=== PATIENT | male | born 1940 | race Caucasian/White ===

== ENCOUNTER 2019-05-08 14:29 | Observation (INO) ==
--- OUTSIDE RECORDS SUMMARY | 2019-05-08 14:31 | External Medical Summary | Continuity of Care Document ---
:1940 Author Name Lukas Saab Address Unavailable Unavailable , Care Team Providers Name Role Phone Iain Acevedo M.D.. Unavailable [email or web address] Iain ACEVEDO M.D. Unavailable Unavailable Unavailable Unavailable Unavailable Problems Allergic rhinitis (477.9) (J30.9) Vitiligo (709.01) (L80) Allergies and Adverse Reactions No Known Drug Allergies (Allergy) Medications Triamcinolone Acetonide 0.1 % External Cream Start: 09-Jan-2012 Refills: 0 Ipratropium Java 0.02 % Inhalation Solution Start: 09-Jan-2012 Refills: 0 Betamethasone Valerate 0.1 % External Cr eam; APPLY SPARINGLY TO AFFECTED AREA(S) TWICE DAILY Katiana Acevedo Start: 09-Jan-2012 Quantity: 60 Refills: 5 Procedures Procedures not documented Immunizations Immunizations not documented Social History - Smoking Status Never smoker Plan of Treatment Planned Observations Planned Goals not documented Results No Known Results Results not documented
[2019-05-08] MEDS ORDERED: SODIUM CHLORIDE 0.9% 1000ML 1,000 ML IV SCH (14:45)
[2019-05-08] MEDS ORDERED: OPTIRAY 320 125ml IV PRN (14:50)
--- NOTE | 2019-05-08 14:53 | CT Scan Report ---
CT OF THE HEAD WITHOUT CONTRAST CLINICAL HISTORY: Stroke Alert. COMPARISON STUDY: No previous studies for comparison. CT DOSE: 614.27 mGy.cm TECHNIQUE: Helical axial images of the head were obtained without IV contrast. Automated exposure con trol was utilized for the study. A dose lowering technique was utilized adhering to the principles o f ALARA. FINDINGS: No acute intracranial hemorrhage, midline shift or mass effect is present. The ventricular system is unremarkable with the exception of a cavum vellum interpositum. The basilar cisterns are pa tent. No extra-axial collections are present. No significant calvarial abnormalities are present. Vis ualized portions of the sinuses and mastoid air cells are clear. IMPRESSION: No acute hemorrhage or mass effect. Electronically signed by: Soto Camilo M.D. 05/08/2019 2:52 PM
[2019-05-08] MEDS ORDERED: THIAMINE HCL 200 MG in SODIUM CHLORIDE 0.9% 50 ML IV STA (14:55)
--- NOTE | 2019-05-08 15:00 | CT Scan Report ---
CT ANGIOGRAM OF THE BRAIN CLINICAL HISTORY: Change in mental status. Stroke like symptoms. COMPARISON STUDY: Unenhanced CT of the brain dated 05/08/2019. TECHNIQUE: Following the IV administration of 117 cc of Optiray 320, CT angiogram of the brain was pe rformed from the skull base to the vertex. Images are reviewed in the axial, sagittal, and coronal pl anes. 3-D MIPS images are created and assessed. IV contrast was administered without complication. A dose lowering technique was utilized adhering to the principles of ALARA. CT DOSE: 613.36 mGy.cm FINDINGS: Brain parenchyma: There is mild age-related involutional change with minimal microangiopathic disease . There is no hemorrhage, mass effect, or evidence of acute territorial ischemia by CT criteria. Ther e is no evidence of enhancing mass lesion on the angiogram phase images. No extra-axial fluid collect ion is seen. Martin-white matter differentiation is preserved. Ventricles, sulci, and cisterns: Normal in configuration. CT angiogram of the brain: There is atherosclerotic calcification of the cavernous carotid arteries. There is origin of the left posterior cerebral artery. A posterior communicating artery is seen on the right. The internal carotid arteries are widely patent, as are the anterior and middle cerebr al arteries. The vertebrobasilar system and posterior cerebral arteries are widely patent. The verteb ral arteries are codominant. 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 No additional aneurysms identified. There is no h igh-grade stenosis or focal vessel cutoff identified throughout the intracranial circulation. Dural sinuses: Clear as visualized. Orbits: The bony orbits are intact. The orbital contents are normal as visualized. Sinuses and mastoids: There is mild mucosal thickening and fluid within a left posterior ethmoid sinu s. Trace mucosal thickening seen in the maxillary antra. The remaining the visualized paranasal sinus es are clear. The mastoid air cells are well pneumatized. Calvarium: Unremarkable. IMPRESSION: 1. There is no hemorrhage, mass effect, or evidence of acute territorial ischemia by CT criteria noti ng angiographic phase technique. 2. 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 3. Otherwise unremarkable CT angiogram of the brain. Electronically signed by: Nam Gonsales M.D. 05/08/2019 2:59 PM
--- NOTE | 2019-05-08 15:01 | CT Scan Report ---
CT ANGIOGRAPHY OF THE NECK WITH CONTRAST CLINICAL HISTORY: Weakness. Stroke symptoms. COMPARISON STUDY: No previous studies for comparison. Technique: CT angiography of the carotid and vertebral arteries was obtained using [email or web address] 320 IV and 3D reconstruction on an independent workstation. NASCET criteria was utilized. Automated exposure c ontrol was utilized for the study. A dose lowering technique was utilized adhering to the principles of ALARA. Findings: Lung apices are clear. There is no cervical lymphadenopathy. No cervical spine fracture is noted. Multilevel degenerative changes within the cervical spine are noted. There is no significant s tenosis within the bilateral common carotid, cervical internal carotid or vertebral arteries. There i s mild plaque within the bilateral carotid bifurcations without stenosis. There is no dissection with in the major vessels of the neck. The CTA of the head will be reported separately. IMPRESSION: Mild atherosclerotic plaque with no stenosis or dissection within the neck. Electronically signed by: Soto Camilo M.D. 05/08/2019 3:00 PM
[2019-05-08 15:11] LABS: Basophils # (auto) 0.04 K/uL (0-0.2); Basophils % (auto) 0.6 %; Eosinophils # (auto) 0.11 K/uL (0-0.5); Eosinophils % (auto) 1.6 %; Hematocrit (blood only) 38.2 % (42-52); Hemoglobin 13.1 g/dL (14.0-18.0); Immature Granulocytes # (auto) 0.07 K/uL (0.00-0.02); Lymphocytes # (auto) 1.66 K/uL (1.2-3.4); Lymphocytes % (auto) 24.8 %; Mean Corpuscular Hemoglobin 30.7 pg (25-34); Mean Corpuscular Hgb Conc 34.3 g/dL (32-36); Mean Corpuscular Volume 89.5 fL (80-100); Mean Platelet Volume 8.4 fL (7.4-10.4); Monocytes # (auto) 0.61 K/uL (0.11-0.59); Monocytes % (auto) 9.1 %; Neutrophils # (auto) 4.21 K/uL (1.4-6.5); Neutrophils % (auto) 62.9 %; Platelet Count 180 K/uL (130-400); RDW Coefficient of Variation 13.4 % (11.5-14.5); RDW Standard Deviation 43.7 fL (36.4-46.3); Red Blood Count 4.27 M/uL (4.7-6.1)
[2019-05-08] MEDS ORDERED: METOPROLOL TARTRATE 1 MG/ML VIAL IV STA (15:21)
[2019-05-08 15:28] LABS: Alanine Aminotransferase 20 U/L (12-78); Albumin Level 3.5 gm/dl (3.4-5.0); Aspartate Aminotransferase 17 U/L (15-37); BUN Creatinine Ratio 15.6 (10-20); Blood Urea Nitrogen 13 mg/dl (7-18); Calcium 7.9 mg/dl (8.5-10.1); Carbon Dioxide 22 mmol/L (21-32); Chloride 101 mmol/L (98-107); Creatinine Clr Calc Pharmacy 69.9 ml/min; Est GFR (African American) 98.6; Est GFR (Non-African American) 85.1; Glucose 113 mg/dl (70-99); Magnesium 1.9 mg/dl (1.8-2.4); Potassium 3.5 mmol/L (3.5-5.1); Sodium 134 mmol/L (136-145)
[2019-05-08 15:33] LABS: Albumin Globulin Ratio 1.3 (0.9-2); Alkaline Phosphatase 64 U/L (45-117); Bilirubin,Total 0.3 mg/dl (0.2-1); Globulin 2.8 gm/dl (2.5-4.0); Total Protein 6.3 gm/dl (6.4-8.2); Troponin I < 0.015 ng/ml (0-0.045)
--- NOTE | 2019-05-08 15:33 | Emergency Department Note ---
Entered by Shruthi Gaona acting as a scribe for History of Present Illness General Chief complaint: Neuro Symptoms/Deficit Stated complaint: MEMORY LOSS OF TODAYS,LIGHT HEADED,DISORIENTED Time Seen by Provider: 05/08/19 14:35 Source: patient and family () Limitations: no limitations History of Present Illness Onset (ago): hour(s) 2 (over two) Location: head Severity: similar to prior episodes Pain Consistency: + other (persistent ) Current Pain Intensity: 0 Quality: + other (neurological symptoms, disorientation) Associated symptoms: + confusion; no chest pain and no shortness of breath The patient is a 78 year old male who presents to the Emergency Room with complaints of persistent neurological symptoms that his noticed at 12:30 this afternoon, over two hours ago. The patient's , at bedside, reports that she and the patient had intercourse at 11:40, stating that this was the last time she was sure he was normal. The patient's notes that that the patient could not remember anything that occurred this morning, he kept repeatedly checking the calendar, and he does not know what day it is. The patient complains of disorientation. He denies any current pain. The patient denies any SOB and CP. The patient's denies the patient having difficulty ambulating and change in speech. His notes that the patient has a few glasses of wine every night with dinner. The notes that his brother has a history of hypertension and heart disease. His , at bedside, states that a similar previous episode occurred a few months ago, noting that it resolved itself. Home Medications Home Medications Medication Instructions Recorded Confirmed Type fluticasone propionate [Flonase 2 spray INTRANASAL DAILY PRN 05/08/19 05/08/19 History Allergy Relief] Allergies Allergy/AdvReac Type Severity Reaction Status Date / Time No Known Allergies Allergy Verified 05/08/19 16:02 Past Med/Surg History Medical History Tick bite Family History Brother Heart disease Hypertension Social History Preferred Language: Chinese Communication Ability: Effective Inside Sales Specialist Required: No Beliefs That Will Affect Care: None Current Living Situation: Spouse Feels Safe at Home: Yes Smoking Status: Never smoker Hx Alcohol Use: Yes Alcohol type: wine Hx Substance Use: No Review of Systems See HPI for pertinent positives & negatives. and A total of 10 systems reviewed and were otherwise negative Physical Exam Vital Signs Vital Signs - 24 hr 05/08/19 16:40 05/08/19 16:45 Pulse Rate 68 Pulse Rate from SpO2 Sensor 69 Respiratory Rate 16 20 Blood Pressure 151/92 H Blood Pressure Mean 111 Pulse Oximetry 96 96 Oxygen Delivery Method Room Air Room Air GENERAL: Patient is awake, alert, and in no acute distress.Patient is resting comfortably and showing no signs of anxiety EYES: The conjunctivae are clear. The pupils are round and reactive. EARS, NOSE, MOUTH AND THROAT: The nose is without any evidence of any deformity. Mucous membranes are moist.Tongue is midline NECK: The neck is nontender and supple. RESPIRATORY: Normal respiratory effort is noted. There is no evidence of wheezing rhonchi or rales to auscultation. CARDIOVASCULAR: Regular rate and rhythm noted. There no murmurs rubs or gallops normal S1 normal S2 GASTROINTESTINAL: The abdomen is soft. Bowel sounds are present in all quadrants. Abdomen is nontender. MUSCULOSKELETAL/EXTREMITIES: There is no evidence of gross deformity. Full range of motion is noted in the hips and shoulders. SKIN: There is no obvious evidence of any rash. There are no petechiae, pallor or cyanosis noted. NEUROLOGIC: Patient is awake alert and oriented to person, place, and situation. Patient is confused about the date. He is confused about the date. The patient is having significant recalling the last 24 hours. No facial droop noted. Gait is steady. Course 1450: The patient was evaluated in room B01. A complete history and physical exam was performed. 1457: I spoke with Dr. Gambino, [facility], about the patients case. 1503: I reassessed the patient, and he was stable. 1557: I spoke with Dr. Moya, [facility] hospitalist, about the patient's case. She will further evaluate the patient. Consultations Consultation #1: I spoke with Dr. Gambino, [facility], about the patients case. Time: 14:57 Consultation #2: I spoke with Dr. Moya, [facility] hospitalist, about the patient's case. She will further evaluate the patient. Time: 15:57 Administered Medications Discontinued Medications Aspirin (Ecotrin Ectab) 81 mg PO QAM KAY Stop: 06/08/19 08:59 Last Admin: 05/09/19 08:39 Dose: 81 mg Documented by: [id number] Enoxaparin Sodium (Lovenox) 40 mg SQ Q24H KAY Stop: 06/07/19 18:29 Last Admin: 05/08/19 18:30 Dose: 40 mg Documented by: [id number] Gadobutrol (Gadavist 65ml) 7 ml IV ONCE PRN PRN Reason: Interaction Checking Stop: 05/12/19 21:00 Last Admin: 05/08/19 21:02 Dose: 7 ml Documented by: [id number] Sodium Chloride (Nss 1000ml) 1,000 mls @ 50 mls/hr IV .Q20H KAY Stop: 06/07/19 14:44 Last Infusion: 05/09/19 11:27 Dose: 0 mls/hr Documented by: [id number] Admin: 05/08/19 15:24 Dose: 50 mls/hr Documented by: [id number] Thiamine HCl 200 mg/ Sodium (Chloride) 52 mls @ 208 mls/hr IV NOW STA Stop: 05/08/19 15:09 Last Infusion: 05/08/19 15:59 Dose: 0 mls/hr Documented by: [id number] Admin: 05/08/19 15:24 Dose: 208 mls/hr Documented by: [id number] Ioversol (Optiray 320 125ml) 117 ml IV ONCE PRN PRN Reason: Interaction Checking Stop: 05/12/19 14:49 Last Admin: 05/08/19 14:50 Dose: 117 ml Documented by: [id number] Metoprolol Tartrate (Lopressor) 5 mg IV NOW STA Stop: 05/08/19 15:22 Last Admin: 05/08/19 15:29 Dose: 5 mg Documented by: [id number] Medical Decision Making Differential Diagnosis Differential Diagnosis includes but is not limited to ischemic Stroke, hemorrhagic stroke, bells palsy, mass, neoplasm, migraine headache, seizure, subarachnoid hemorrhage, TIA, and transient global amnesia. Medical Records Attestation: I reviewed the patient's medical records. Home Medications Current Medication List: was personally reviewed by me Laboratory Data Attestation: I reviewed the patient's lab results. Result diagrams: 05/08/19 14:57 05/08/19 14:57 Lab Results 05/08/19 05/08/19 05/08/19 Range/Units 14:52 14:57 14:57 WBC 6.70 (4.8-10.8) K/uL RBC 4.27 L (4.7-6.1) M/uL Hgb 13.1 L (14.0-18.0) g/dL Hct 38.2 L (42-52) % MCV 89.5 (80-100) fL MCH 30.7 (25-34) pg MCHC 34.3 (32-36) g/dL RDW Std Deviation 43.7 (36.4-46.3) fL RDW Coeff of Ciara 13.4 (11.5-14.5) % Plt Count 180 (130-400) K/uL MPV 8.4 (7.4-10.4) fL Immature Gran % (Auto) 1.0 % Neut % (Auto) 62.9 % Lymph % (Auto) 24.8 % Berks % (Auto) 9.1 % Eos % (Auto) 1.6 % Baso % (Auto) 0.6 % Immature Gran # (Auto) 0.07 H (0.00-0.02) K/uL Neut # (Auto) 4.21 (1.4-6.5) K/uL Lymph # (Auto) 1.66 (1.2-3.4) K/uL Berks # (Auto) 0.61 H (0.11-0.59) K/uL Eos # (Auto) 0.11 (0-0.5) K/uL Baso # (Auto) 0.04 (0-0.2) K/uL PT Cancelled INR Cancelled APTT Cancelled PTT Ratio Cancelled Sodium (136-145) mmol/L Potassium (3.5-5.1) mmol/L Chloride (98-107) mmol/L Carbon Dioxide (21-32) mmol/L Anion Gap (3-11) BUN (7-18) mg/dl Creatinine (0.6-1.4) mg/dl Est Cr Clr Drug Dosing ml/min Est GFR ( Amer) Est GFR (Non-Af Amer) BUN/Creatinine Ratio (10-20) Glucose (70-99) mg/dl POC Glucose 119 H (70-99) Estimat Average Glucose mg/dl Hemoglobin A1c (4.5-5.6) % Calcium (8.5-10.1) mg/dl Magnesium (1.8-2.4) mg/dl Total Bilirubin (0.2-1) mg/dl AST (15-37) U/L ALT (12-78) U/L Alkaline Phosphatase (45-117) U/L Troponin I (0-0.045) ng/ml Total Protein (6.4-8.2) gm/dl Albumin (3.4-5.0) gm/dl Globulin (2.5-4.0) gm/dl Albumin/Globulin Ratio (0.9-2) 05/08/19 05/08/19 05/08/19 Range/Units 14:57 14:57 15:23 WBC (4.8-10.8) K/uL RBC (4.7-6.1) M/uL Hgb (14.0-18.0) g/dL Hct (42-52) % MCV (80-100) fL MCH (25-34) pg MCHC (32-36) g/dL RDW Std Deviation (36.4-46.3) fL RDW Coeff of Ciara (11.5-14.5) % Plt Count (130-400) K/uL MPV (7.4-10.4) fL Immature Gran % (Auto) % Neut % (Auto) % Lymph % (Auto) % Berks % (Auto) % Eos % (Auto) % Baso % (Auto) % Immature Gran # (Auto) (0.00-0.02) K/uL Neut # (Auto) (1.4-6.5) K/uL Lymph # (Auto) (1.2-3.4) K/uL Berks # (Auto) (0.11-0.59) K/uL Eos # (Auto) (0-0.5) K/uL Baso # (Auto) (0-0.2) K/uL PT 10.3 INR 1.0 APTT 26.3 PTT Ratio 1.0 Sodium 134 L (136-145) mmol/L Potassium 3.5 (3.5-5.1) mmol/L Chloride 101 (98-107) mmol/L Carbon Dioxide 22 (21-32) mmol/L Anion Gap 11.0 (3-11) BUN 13 (7-18) mg/dl Creatinine 0.84 (0.6-1.4) mg/dl Est Cr Clr Drug Dosing 69.9 ml/min Est GFR ( Amer) 98.6 Est GFR (Non-Af Amer) 85.1 BUN/Creatinine Ratio 15.6 (10-20) Glucose 113 H (70-99) mg/dl POC Glucose (70-99) Estimat Average Glucose 108 mg/dl Hemoglobin A1c 5.4 (4.5-5.6) % Calcium 7.9 L (8.5-10.1) mg/dl Magnesium 1.9 (1.8-2.4) mg/dl Total Bilirubin 0.3 (0.2-1) mg/dl AST 17 (15-37) U/L ALT 20 (12-78) U/L Alkaline Phosphatase 64 (45-117) U/L Troponin I < 0.015 (0-0.045) ng/ml Total Protein 6.3 L (6.4-8.2) gm/dl Albumin 3.5 (3.4-5.0) gm/dl Globulin 2.8 (2.5-4.0) gm/dl Albumin/Globulin Ratio 1.3 (0.9-2) Imaging Data Radiologist's Impression: Radiology results as stated below per my review and the radiologist's interpretation: CT OF THE HEAD WITHOUT CONTRAST CLINICAL HISTORY: Stroke Alert. COMPARISON STUDY: No previous studies for comparison. CT DOSE: 614.27 mGy.cm TECHNIQUE: Helical axial images of the head were obtained without IV contrast. Automated exposure control was utilized for the study. A dose lowering technique was utilized adhering to the principles of ALARA. FINDINGS: No acute intracranial hemorrhage, midline shift or mass effect is present. The ventricular system is unremarkable with the exception of a cavum vellum interpositum. The basilar cisterns are patent. No extra-axial collections are present. No significant calvarial abnormalities are present. Visualized portions of the sinuses and mastoid air cells are clear. IMPRESSION: No acute hemorrhage or mass effect. Electronically signed by: Soto Camilo M.D. 05/08/2019 2:[address] ANGIOGRAPHY OF THE NECK WITH CONTRAST CLINICAL HISTORY: Weakness. Stroke symptoms. COMPARISON STUDY: No previous studies for comparison. Technique: CT angiography of the carotid and vertebral arteries was obtained using Optiray 320 IV and 3D reconstruction on an independent workstation. NASCET criteria was utilized. Automated exposure control was utilized for the study. A dose lowering technique was utilized adhering to the principles of ALARA. Findings: Lung apices are clear. There is no cervical lymphadenopathy. No cervical spine fracture is noted. Multilevel degenerative changes within the cervical spine are noted. There is no significant stenosis within the bilateral common carotid, cervical internal carotid or vertebral arteries. There is mild plaque within the bilateral carotid bifurcations without stenosis. There is no dissection within the major vessels of the neck. The CTA of the head will be reported separately. IMPRESSION: Mild atherosclerotic plaque with no stenosis or dissection within the neck. Electronically signed by: Soto Camilo M.D. 05/08/2019 3:[address] ANGIOGRAM OF THE BRAIN CLINICAL HISTORY: Change in mental status. Stroke like symptoms. COMPARISON STUDY: Unenhanced CT of the brain dated 05/08/2019. TECHNIQUE: Following the IV administration of 117 cc of Optiray 320, CT angiogram of the brain was performed from the skull base to the vertex. Images are reviewed in the axial, sagittal, and coronal planes. 3-D MIPS images are created and assessed. IV contrast was administered without complication. A dose lowering technique was utilized adhering to the principles of ALARA. CT DOSE: 613.36 mGy.cm FINDINGS: Brain parenchyma: There is mild age-related involutional change with minimal m icroangiopathic disease. There is no hemorrhage, mass effect, or evidence of acute territorial ischemia by CT criteria. There is no evidence of enhancing mass lesion on the angiogram phase images. No extra-axial fluid collection is seen. Martin-white matter differentiation is preserved. Ventricles, sulci, and cisterns: Normal in configuration. CT angiogram of the brain: There is atherosclerotic calcification of the cavernous carotid arteries. There is origin of the left posterior cerebral artery. A posterior communicating artery is seen on the right. The internal carotid arteries are widely patent, as are the anterior and middle cerebral arteries. The vertebrobasilar system and posterior cerebral arteries are widely patent. The vertebral arteries are codominant. 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 No additional aneurysms identified. There is no high-grade stenosis or focal vessel cutoff identified throughout the intracranial circulation. Dural sinuses: Clear as visualized. Orbits: The bony orbits are intact. The orbital contents are normal as visualized. Sinuses and mastoids: There is mild mucosal thickening and fluid within a left posterior ethmoid sinus. Trace mucosal thickening seen in the maxillary antra. The remaining the visualized paranasal sinuses are clear. The mastoid air cells are well pneumatized. Calvarium: Unremarkable. IMPRESSION: 1. There is no hemorrhage, mass effect, or evidence of acute territorial ischemia by CT criteria noting angiographic phase technique. 2. 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 3. Otherwise unremarkable CT angiogram of the brain. Electronically signed by: Nam Gonsales M.D. 05/08/2019 2:59 PM XR chest 1V portable CLINICAL HISTORY: weakness COMPARISON STUDY: No previous studies for comparison. FINDINGS: The heart is at the upper limits of normal in size. There is no failure. There is no focal pulmonary consolidation. There are no pleural effusions.[ IMPRESSION: No active disease in the chest. Electronically signed by: Bear Fields M.D. 05/08/2019 3:36 PM ECG Data Attestation: I personally reviewed and interpreted this ECG as follows: Indication: altered mental status (disorientation) Rate (beats per minute): 79 Rhythm: normal sinus Findings: + ST depression; no ectopy Comparison ECG Date: no prior available Blood Pressure Blood Pressure Findings: Elevated blood pressure Blood Pressure Disposition: further management by hospitalist [facility] Narrative The patient is a 78-year-old male who presented to the emergency department for an evaluation of altered mental status. The patient was in his normal state of health earlier today. He did have sexual intercourse with his significant other and shortly afterwards when the patient was noted to have altered mental status. He could not remember the events of the day. He would ask repetitive questioning. He was also unable to produce his last name or the current date. The patient did have elevated blood pressure was treated with IV antihypertensives. The patient was made a stroke alert in triage and I discussed this case with the tele-stroke neurologist at [facility]. The patient was reevaluated multiple times. I discussed the patient's laboratory and radiographic studies with him including the findings on the angiography. Given the patient's ongoing symptoms I also discussed his case with the on-call [facility] hospitalist group. They have agreed to evaluate the patient in the emergency department for further management disposition. Impression & Plan Transient global amnesia, Brain TIA, Confusion Discharge Plan Visit Data *Final* Discharge Date/Time: 05/08/19 17:28 Chief Complaint: Neuro Symptoms/Deficit Stated Complaint: MEMORY LOSS OF TODAYS,LIGHT HEADED,DISORIENTED ED Provider: Nasir Garcia Discharge Problem: Transient global amnesia, Brain TIA, Confusion Patient Disposition: Admitted As Inpatient Discharge Instructions Interventions: ED Discharge Assessment Last Done: 05/08/19 17:28 The scribe's documentation has been prepared under my direction and personally reviewed by me in its entirety. I confirm that the note above accurately reflects all work, treatment, procedures, and medical decision making performed by me.
--- NOTE | 2019-05-08 15:37 | XRay Report ---
XR chest 1V portable CLINICAL HISTORY: weakness COMPARISON STUDY: No previous studies for comparison. FINDINGS: The heart is at the upper limits of normal in size. There is no failure. There is no focal pulmonary consolidation. There are no pleural effusions.[ IMPRESSION: No active disease in the chest. Electronically signed by: Bear Fields M.D. 05/08/2019 3:36 PM
[2019-05-08 15:54] LABS: Partial Thromboplastin Time 26.3 Seconds (21.0-31.0); Prothrombin Time 10.3 Seconds (9.0-12.0)
[2019-05-08] MEDS ORDERED: ONDANSETRON INJ 2 MG/ML 2 ML VIAL IV PRN (17:53)
[2019-05-08] MEDS ORDERED: PHARMACIST DISCHARGE MED REC CONSULT PRN (17:53)
[2019-05-08] MEDS ORDERED: ACETAMINOPHEN 325 MG TAB PO PRN (17:53)
[2019-05-08] MEDS ORDERED: FLUTICASONE PROPIONATE NA SPR 16 GM BTL NAE PRN (17:53)
[2019-05-08] MEDS ORDERED: ALUMINUM/MAGNESIUM SUSP 30 ML UDC PO PRN (17:53)
[2019-05-08] MEDS ORDERED: MAGNESIUM HYDROXIDE SUSP 30 ML UDC PO PRN (17:53)
[2019-05-08] MEDS ORDERED: ENOXAPARIN INJ 40 MG/0.4 ML SYR SQ SCH (18:30)
--- NOTE | 2019-05-08 18:54 | History & Physical Report ---
Date of Service May 08, 2019 Assessment & Plan (1) Transient global amnesia: Now back to baseline state. Obviously because it would carry a higher risk we need to look at this TGA episode as potentially cerebrovascular until proven otherwiseutilizing a fairly standard work-up to assess for risk for intracranial atherosclerosis, his carotid circulation is clear, and follow cardiac rhythms/check echocardiogram to risk stratify for cardioembolic source. That said, given that he is otherwise quite healthy and seems to carry very low vascular risk (save the risk of simply being a 78-year-old male) and the situation happened in a postcoital context, I suspect some sort of vasodilator y/migrainous phenomenon is at play. Far less likely would be seizure, and given that he seems to carry no anxiety or depression a psychological/psychogenic phenomenon seems least likely. Check MRI brain, otherwise work-up as above. Aspirin for now, but if the work-up is otherwise negative, will likely discontinue it. Ask neurology for evaluation as well. (2) DVT prophylaxis: Lovenox History of Present Illness Chief Complaint: Amnesia Primary Care Provider: Brian Gutiérrez Ovalles Patient is a very pleasant 78-year-old male, but the history is obtained almost entirely from his , as he has almost no recollection of what it happened. She notes that he was his normal self this morning, very sharp memory, very charismatic gentleman, and completely in his normal state. Apparently at some point this morning they had intercourse, and then she had left to run some errands. Whenever she came back may be in the neighborhood of an hour later, he was confusedly asking what the date was repeatedly asking the same questions, and acting strangely looking at his phone in the calendar. She called the office, who recommended him come to the ER for further evaluation. Here in the ER fortunately he did not show signs of a bleed, and tertiary care stroke eval did not recommend thrombolytics, and we were asked to admit for further evaluation and treatment. He seems to have improved to his normal mental status now. Is making jokes, and other than not being able to remember anything about this morning and it seems a decent amount of yesterday, he and his both feel he is now back to his baseline. No other complaints. He is apparently quite healthy gia, tries to eat fairly healthy, exercises regularly, takes good care of himself, and denies any chronic medical problems. Allergies Allergy/AdvReac Type Severity Reaction Status Date / Time No Known Allergies Allergy Verified 05/08/19 16:02 Home Medications Home Medications Medication Instructions Recorded Confirmed Type fluticasone propionate [Flonase 2 spray INTRANASAL DAILY PRN 05/08/19 05/08/19 History Allergy Relief] Past Med/Surg History Medical History Tick bite Family History Brother Heart disease Hypertension Social History Preferred Language: Tunisian Communication Ability: Effective Stone Rougher Required: No Beliefs That Will Affect Care: None Current Living Situation: Spouse Other Information That Helps Us Care for You: No Feels Safe at Home: Yes Safety Concerns: Feels Safe At This Time Smoking Status: Never smoker Hx Alcohol Use: Yes Alcohol type: wine Hx Substance Use: No Review of Systems Review of Systems: All systems reviewed & are unremarkable except as noted in HPI & below Physical Exam Physical Exam: General he is awake alert oriented x3 pleasant no distress (of note on orientation he did at first guess that the year was 2019 but otherwise was oriented) HEENT normocephalic atraumatic mucous membranes are moist, PERRL Cardio regular no rubs murmurs or gallops Lungs are clear to auscultation bilaterally no rales rhonchi or wheezes good effort Abdomen soft nondistended nontender no masses organomegaly Extremities show no cyanosis clubbing or edema no calf tenderness Neuro shows cranial nerves II through XII be grossly intact gross motor and sensory intact globally with strength being 5 out of 5 upper and lower extremities Skin shows no rashes no pallor or icterus Musculoskeletal exam shows normal spinal alignment no gross deformities Mental status shows good thought process, good concrete thought good abstraction, and other than for the events surrounding his trip to the emergency department good recent and remote recall. He is pleasant and joking, making very witty remarks, and showing good higher-level thinking. Results & Data Vital Signs (Past 12 Hours) Vital Signs Temp Pulse Pulse Resp BP BP Pulse Ox 05/08/19 18:14 98.6 F 68 16 155/88 H 96 05/08/19 17:28 64 20 164/93 H 99 05/08/19 17:00 68 20 141/85 H 96 05/08/19 16:45 68 20 151/92 H 96 05/08/19 16:40 16 96 05/08/19 16:32 63 18 147/91 H 05/08/19 16:00 65 14 152/75 H 05/08/19 15:45 66 15 138/87 05/08/19 15:30 67 20 143/97 H 05/08/19 15:29 69 166/78 H 05/08/19 15:15 75 20 166/78 H 05/08/19 15:03 77 18 179/95 H 98 05/08/19 15:00 78 13 98 05/08/19 14:55 82 16 86 L 05/08/19 14:53 83 29 H 156/88 H 05/08/19 14:32 98.1 F 69 18 92 05/08/19 14:30 98 Code Status & VTE Plan VTE Prophylaxis Plan VTE Prophylaxis will be ordered: Yes PG Care Time/CCT Total # of Minutes Spent Total Time Spent with Patient: Total time spent is greater than 50% in coord ination of care (as documented) at patient's floor/unit and/or counseling patient:
[2019-05-08] MEDS ORDERED: GADOBUTROL 65ML VIAL IV PRN (21:01)
--- NOTE | 2019-05-08 21:37 | Magnetic Resonance Report ---
Brain MRI WITH AND WITHOUT CONTRAST HISTORY: neurologic deficit TECHNIQUE: Multiplanar multisequence MRI of the brain was performed both before and after the intrave nous administration of contrast. COMPARISON STUDY: Head CT 05/08/2019. FINDINGS: There is no mass, hematoma, midline shift, or acute infarct. The paranasal sinuses are prince r. The mastoid air cells are clear. The ventricles and sulci demonstrate mild age-related involutiona l changes. Scattered foci of T2 hyperintensity seen within the periventricular and subcortical white matter are nonspecific but suggestive of mild microvascular ischemic changes. The major vascular flow voids at the skull base are well-maintained. No abnormal enhancement. 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 IMPRESSION: No acute intracranial abnormality. Scattered foci of T2 hyperintensity seen within the periventricula r and subcortical white matter are nonspecific but favor mild microvascular ischemic change. Electronically signed by: Mirza Red M.D. 05/08/2019 9:35 PM
[2019-05-09 07:30] LABS: Estimated Average Glucose 108 mg/dl; Hemoglobin A1C 5.4 % (4.5-5.6)
[2019-05-09 07:34] LABS: Chol HDL Ratio 6; Cholesterol 194 mg/dl (0-200); HDL Cholesterol 35 mg/dl; LDL Cholesterol Calculated 108 mg/dl; Triglycerides 257 mg/dl (0-150); VLDL Cholesterol 51 mg/dl
[2019-05-09] MEDS ORDERED: ASPIRIN 81 MG ECTAB PO SCH (09:00)
--- NOTE | 2019-05-09 09:24 | Neurology Consultation ---
Date of Consultation May 09, 2019 Assessment & Plan (1) Transient global amnesia: Probable episode of transient global amnesia, resolved. Patient will probably have a residual span of amnesia for yesterday's episode. His memory and cognitive functioning are normal at this time. There was no evidence for stroke or acute process on his MRI. 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 The etiology of transient global amnesia is unknown. However, sexual activity and/or travel may be precipitants for this patient. To what extent melatonin supplementation may also have contributed to his clinical presentation is unknown. We discussed monitoring and modifying these potential risk factors going forward. Otherwise, there is no specific treatment or preventive medication for this condition. 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 This finding will need ongoing follow-up. Patient should have a consultation with a vascular neurosurgeon at [facility] as an outpatient. History of Present Illness Reason for Consultation: Episode of amnesia, TIA? 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 He was last known well about 1 hour prior during which time he had been having sexual intercourse. The patient recalls some elements of coming to the hospital for further evaluation. He remembers writing some emails to a colleague earlier that morning regarding a pending conference in [place]. His spouse had noted that he was asking the same questions repeatedly. His symptoms were still present during his initial assessment in the emergency department. A tele Stroke consultation was obtained. TPA was not recommended. There was no report of any associated change in speech, weakness, or difficulty with gait or balance during the episode. His symptoms had resolved by the time he was assessed by the admitting hospitalist. At this time, the patient is quite pleasant and cooperative. He continues to report some a amnesia for yesterday's events but has not had any problems with his memory after his admission to the medical floor. He denies any headache, vision loss, change in speech, or weakness at this time. I observed him sitting up in a bedside chair typing on his laptop. 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 We also discussed a similar amnestic episode he had experienced a few months ago while traveling [place] and whether or not his intermittent use of melatonin for improved sleep over the past 2 years could also have contributed to these 2 events. Allergies Allergy/AdvReac Type Severity Reaction Status Date / Time No Known Allergies Allergy Verified 05/08/19 16:02 Home Medications Home Medications Medication Instructions Recorded Confirmed Type fluticasone propionate [Flonase 2 spray INTRANASAL DAILY PRN 05/08/19 05/08/19 History Allergy Relief] Patient History Medical History Tick bite Family History Brother Heart disease Hypertension Social History Preferred Language: Irish Communication Ability: Effective Senior Etl Developer Required: No Beliefs That Will Affect Care: None Current Living Situation: Spouse Other Information That Helps Us Care for You: No Feels Safe at Home: Yes Safety Concerns: Feels Safe At This Time Smoking Status: Never smoker Hx Alcohol Use: Yes Alcohol type: wine Hx Substance Use: No Review of Systems Constitutional: no fever, no chills and no fatigue Eyes: no blind spots and no diplopia Ear, Nose, Mouth, Throat: no hearing loss Respiratory: no cough and no dyspnea Cardiovascular: no chest pain and no palpitations Gastrointestinal: no nausea and no vomiting Genitourinary: no dysuria and no urinary incontinence Musculoskeletal: no myalgia Integumentary: no rash and no lesions Vitiligo which began a few years ago Neurologic: as per Subjective / HPI and + memory loss; no gait abnormality, no localized weakness, no loss of sensation, no tremor(s), no seizure-like activity, no dizziness, no syncope, no headache(s) and no abnormal speech Psychiatric: no depression and no anxiety Hematologic / Lymphatic: no easy bleeding and no easy bruising Physical Exam Physical Exam: The patient is a well-developed, well-nourished elderly male. He is alert and fully oriented. Recent and remote memory intact with the exception for a span of memory loss as described in the history of present illness. Attention and concentration normal. Patient exhibits a normal spontaneous speech pattern as well as an age-appropriate fund of knowledge. Visual patel full to confrontation. Visual acuity normal. Pupils equal round reactive to light and accommodation. Eye movements normal. There is no nystagmus, ptosis, or ophthalmoplegia. Facial sensation intact. There is no facial droop or weakness. Hearing intact. Palate elevates to midline. Shoulder shrug intact. Tongue protrudes to midline. Sensation intact to all modalities in all 4 limbs. Deep tendon reflexes intact and symmetrical for the arms and legs. Plantar responses downgoing bilaterally. There is no dysdiadochokinesia or dysmetria [id number] or [id number] bilaterally. Ophthalmoscopic examination reveals normal-appearing optic disks and posterior segments. No papilledema or hemorrhages. Carotid pulses normal bilaterally, no bruits to auscultation. Gait and station normal. Patient exhibits normal muscle strength and tone for all 4 limbs. No atrophy. No abnormal movements observed. Results & Data Vital Signs (Past 12 Hours) Vital Signs Temp Pulse Pulse Pulse Resp BP BP 05/09/19 07:43 37.1 C 60 16 136/79 05/09/19 04:09 36.6 C 62 18 132/66 05/09/19 00:36 83 05/08/19 23:19 36.9 C 69 18 121/76 Pulse Ox 05/09/19 07:43 95 05/09/19 04:09 95 05/09/19 00:36 05/08/19 23:19 95 Laboratory Results WBC 6.70, hemoglobin 13.1, hematocrit 38.2, platelet count 180, sodium 134, potassium 3.5, BUN 13, creatinine 0.84, glucose 113, hemoglobin A1c 5.4, transaminases normal, troponin less than 0.015, triglycerides 257, cholesterol 194, LDL 108, VLDL 51, HDL 35 Diagnostic Findings An MRI of the brain completed May 08, 2019 reveals no acute abnormality. There are scattered foci of increased T2/flair signal within the periventricular and subcortical white matter consistent with mild microvascular ischemic d isease. There is no atrophy or hydrocephalus. There is a 2 cm cavum vellum interpositum cyst. I reviewed the images as well as the radiologist interpretation of this test. A CT angiogram of the head reveals a 4 mm aneurysm at the basilar tip and is otherwise unremarkable. A CT angiogram of the neck reveals mild atherosclerotic plaque and is otherwise unremarkable. A CT of the head of the head obtained at the time of presentation was negative for hemorrhage or acute process. Electrocardiogram reveals a normal sinus rhythm, 79 bpm.
[2019-05-09] MEDS ORDERED: STROKE PATIENT DISCHARGE STA (12:54)
--- NOTE | 2019-05-09 13:15 | Discharge Summary ---
Date of Service May 09, 2019 Admission HPI Per Admitting Provider Patient is a very pleasant 78-year-old male, but the history is obtained almost entirely from his , as he has almost no recollection of what it happened. She notes that he was his normal self this morning, very sharp memory, very charismatic gentleman, and completely in his normal state. Apparently at some point this morning they had intercourse, and then she had left to run some errands. Whenever she came back may be in the neighborhood of an hour later, he was confusedly asking what the date was repeatedly asking the same questions, and acting strangely looking at his phone in the calendar. She called the office, who recommended him come to the ER for further evaluation. Here in the ER fortunately he did not show signs of a bleed, and tertiary care stroke eval did not recommend thrombolytics, and we were asked to admit for further evaluation and treatment. He seems to have improved to his normal mental status now. Is making jokes, and other than not being able to remember anything about this morning and it seems a decent amount of yesterday, he and his both feel he is now back to his baseline. No other complaints. He is apparently quite healthy gia, tries to eat fairly healthy, exercises regularly, takes good care of himself, and denies any chronic medical problems. Admission Exam Per Admitting Provider General he is awake alert oriented x3 pleasant no distress (of note on orientation he did at first guess that the year was 2019 but otherwise was oriented) HEENT normocephalic atraumatic mucous membranes are moist, PERRL Cardio regular no rubs murmurs or gallops Lungs are clear to auscultation bilaterally no rales rhonchi or wheezes good effort Abdomen soft nondistended nontender no masses organomegaly Extremities show no cyanosis clubbing or edema no calf tenderness Neuro shows cranial nerves II through XII be grossly intact gross motor and sensory intact globally with strength being 5 out of 5 upper and lower extremities Skin shows no rashes no pallor or icterus Musculoskeletal exam shows normal spinal alignment no gross deformities Mental status shows good thought process, good concrete thought good abstraction, and other than for the events surrounding his trip to the emergency department good recent and remote recall. He is pleasant and joking, making very witty remarks, and showing good higher-level thinking. Principal Diagnosis Transient global amnesia Discharge Exam Constitutional well developed, well nourished and average body habitus; no acute distress Neck trachea midline Respiratory normal respiratory effort, lungs clear to auscultation Cardiovascular RRR, no murmur, no edema Gastrointestinal (Abdomen) normal bowel sounds, soft, nontender, no hepatosplenomegaly Musculoskeletal no cyanosis or clubbing, extremities motor strength 5/5 Skin no rashes, warm and dry Neurologic CN's II-XI intact bilaterally Psychiatric A+Ox3, euthymic affect Discharge Data Allergies Allergy/AdvReac Type Severity Reaction Status Date / Time No Known Allergies Allergy Verified 05/08/19 16:02 Consultations 05/08/19 15:31 ED Decision to Admit Stat 05/08/19 17:53 Consult Case Management - Discharge Planning Routine Consult Neurology Routine Ordered Studies 05/08/19 14:35 CT head/brain wo con Stat 05/08/19 14:43 CT angio head w con Stat CT angio neck with con Stat 05/08/19 17:53 MR brain wo/w con Routine Hospital Course (1) Transient global amnesia: otherwise healthy 78-year-old male presented with a post-coital period of confusion and amnesia, TIA workup done found to be negative and incidental 4mm basilar aneurysm noted on CTA. Transient Global Ischemia -neurology consulted -typical features with anterograde memory difficulty in an older patient -workup for TIA showed normal CT and normal MRI -workup for metabolic encephalopathy negative -patient has had one prior event while in [place] -prognosis of transient global amnesia is thought to be benign, and recurrence risk is low -follow up with outpatient primary doctor to further evaluate and follow Aneurysm -CTA with a likely incidental finding of 4mm aneurysm at the basilar tip -does not appear to be consistent with symptoms -likely low risk given size <7mm -recommend follow up with neurosurgery to discuss the recommendation as far as monitoring frequency if necessary and if treatment would be considered. (2) Basilar artery aneurysm: (3) Brain TIA: (4) Confusion: Total Time Total Time Spent Total Time Spent (In Minutes): >30 Discharge Plan Discharge Items Patient Disposition: Home - Self-Care Reason For Visit: NEUROLOGIC SYMPTOMS Discharge Diagnosis: transient global amnesia Activity: Resume your previous activity Non-emergency contact: Primary Care Provider Call non-emergency contact if: your symptoms worsen Follow-up/Referrals: Ovalles,Brian K. [Primary Care Provider] - Diet: Regular Addtl Attending Provider Instructions: Transient Global Amnesia -Mr. Swann you were admitted to the hospital for an episode where you had confusion and were unable to remember. -we did a workup to rule out infection, metabolic effects, or stroke. This workup was negative for an infectious process, your electrolytes were normal. The imaging of your brain did not show a bleed, or any other cause for the episode that you experienced. The imaging did reveal a small aneurysm, discussed below. -As was discussed with the Neurologist this episode is called Transient Global Amnesia. Again, there are no specific follow up requirements for this. -The episode that you experienced in [place] is likely another episode of what brought you into the hospital. -There is no agreement on the cause of transient global amnesia. -If the frequency of these events increases you should follow up with your primary doctor and potentially with a neurologist. Aneurysm -When we did a CT of the arteries of the brain we noticed that you had a 4 mm aneurysm in a blood vessel in your brain. -Neurology made the recommendation that you follow up with Neurosurgery in [place] to further evaluate the aneurysm. -Warning signs too look out for if there was a change in the size or stability of the aneurysm includes: extreme headaches and waking up with an extreme headache. If you experience these warning signs call or come in to be evaluated, as this could indicate a change in the aneurysm. Pending Studies at Discharge: No Stand-Alone Forms: My [facility] Medications and DC Order Prescriptions: Continued fluticasone propionate [Flonase Allergy Relief] 50 mcg/actuation Industry,Suspension 2 spray INTRANASAL DAILY PRN (Reason: Allergy Symptoms) RF: 0 Discharge Orders: Discharge Order (Routine); Ordered 05/09/19 Ordered By: Baldo Morales Admission Data Admit Date/Time: 05/08/19 16:59 Attending Provider: Dylon Boss Admit Provider: Dylon Boss Primary Care Provider: Brian Ovalles Other Providers: Neela Moya Emile Pierre III Other Interventions: Discharge Summary Assessment (RN) Last Done: 05/09/19 13:06 DC Date/Time DO NOT enter until pt leaves facility: 05/09/19 13:35 Supervising Physician Co-Signing Physician Notes I personally examined the patient and verified all zamora points of history and exam, discussed case, and agree with decision making with Dr Morales. feeling better, wants to go home, extensive discussions w pt and , all questions answered to the best of my ability. vitals noted nad breathing unlabored no pallor or icterus, mental status intact TGA - low risk for recurrence. very low risk cerebrovascular cause. stable for home Resident Activity Tracking Resident Involvement: Resident Care Provided Care Provided: Adult Hospital Medicine
== END 2019-05-09 13:35 | disposition home or self-care (01) ==
LOC: 2S 14:29 → ED 14:29 → 2S 17:28